=== PATIENT | female | born 1935 | race Caucasian/White ===

== ENCOUNTER → 2017-11-22 | Outpatient (CLI) | payer OTHER ==
[~2017-11-22] MED LIST: ACET325 PO; ASPI81CH PO; Aspirin EC325 MG PO; Aspirin EC81 MG PO; CLOP75 PO; HYDACE5 PO; LITH300C PO; LITH300CA; LITH300ER PO; META800 PO; Macrobid 100 M100 MG PO
== END | disposition home or self-care (01) ==
LOC: LAB SHORT 14:57 → LAB EV 14:57
DX: R30.0 Dysuria (principal)
CPT/HCPCS: 87086

== ENCOUNTER → 2018-02-04 | Outpatient (CLI) | payer OTHER | END | disposition home or self-care (01) | LOC: LAB SHORT 08:05 → LAB EV 08:05 | DX: R35.0 Frequency of micturition (principal) | CPT/HCPCS: 87086 ==

== ENCOUNTER 2018-04-12 12:34 | Observation (INO) | payer OTHER ==
[~2018-04-12] VITALS: Ht 157.5 cm; Wt 68.1 kg
[2018-04-12 13:03] LABS: BASOPHILS ABSOLUTE AUTO 0.08 K/mm3 (0.00-0.23); BASOPHILS PERCENT AUTO 1 % (0-2); EOSINOPHILS ABSOLUTE AUTO 0.46 K/mm3 (0.00-0.68); EOSINOPHILS PERCENT AUTO 6 % (0-6); Hematocrit 36.6 % (33.0-51.0); IMMATURE GRAN ABSOLUTE AUTO 0.01 K/mm3 (0.00-0.10); IMMATURE GRAN PERCENT AUTO 0 % (0-1); LYMPHOCYTES ABSOLUTE AUTO 1.83 K/mm3 (0.84-5.20); LYMPHOCYTES PERCENT AUTO 24 % (21-46); MONOCYTES ABSOLUTE AUTO 0.53 K/mm3 (0.16-1.47); MONOCYTES PERCENT AUTO 7 % (4-13); Mean Corpuscular HGB 25.7 pg (26.0-34.0); Mean Corpuscular HGB Conc 30.1 g/dL (31.5-36.5); Mean Corpuscular Volume 86 fL (80-100); Mean Platelet Volume 10.5 fL (9.1-12.4); NEUTROPHILS ABSOLUTE AUTO 4.68 K/mm3 (1.96-9.15); NEUTROPHILS PERCENT AUTO 62 % (41-73); Platelet Count 254 K/mm3 (150-400); RDW Coefficient Variation 14.7 % (11.7-14.2); RDW Standard Deviation 45.3 fL (35.1-46.3); Red Blood Cell Count 4.28 M/mm3 (3.80-5.20); White Blood Cell Count 7.59 K/mm3 (4.00-11.30)
[2018-04-12 13:35] LABS: Alanine Aminotransfer (ALT/SGP 20 U/L (12-78); Albumin, Blood 3.6 g/dL (3.4-5.0); Albumin/Globulin Ratio 1.2 (0.8-1.8); Alk Phos 77 U/L (50-136); Anion Gap 7 mmol/L (6-16); Aspartate Aminotrans (AST/SGOT 18 U/L (12-37); Bilirubin, Total 0.8 mg/dL (0.1-1.0); Blood Urea Nitrogen 15 mg/dL (8-24); Bun/Creatinine Ratio 17.2 (12.0-20.0); CO2, Blood 23 mmol/L (21-32); Calcium, Blood 10.1 mg/dL (8.5-10.1); Chloride, Blood 113 mmol/L (98-108); Creatinine, Blood 0.87 mg/dL (0.40-1.00); Ethanol (Alcohol), Blood, Med <3 mg/dL; Globulin, Blood 3.1 g/dL (2.2-4.0); Glomerular Filtration Rate >60 (60-); Glucose, Blood 87 mg/dL (70-99); Potassium, Blood 4.2 mmol/L (3.5-5.5); Sodium, Blood 143 mmol/L (136-145); Total Protein, Blood 6.7 g/dL (6.4-8.2)
[2018-04-12 13:39] LABS: International Normalized Ratio 1.06; Prothrombin Time Results 10.9 Sec (9.7-11.5)
[2018-04-12] MEDS ORDERED: ASPI81CH PO (13:50)
[2018-04-12] MEDS ORDERED: ASCO500 PO (13:51)
[2018-04-12 19:52] LABS: Lithium 0.89 mmol/L (0.60-1.20)
[2018-04-12 21:19] LABS: Bilirubin, Urine Neg (Neg); Blood, Urine Neg (Neg); Glucose Qualitative, Urine Neg (Neg); Ketones, Urine 2+ (Neg); Leukocyte Esterase, Urine Neg (Neg); Nitrite, Urine Neg (Neg); Protein, Urine Neg (Neg); Urobilinogen, Urine NORM (Normal)
[2018-04-12 21:27] LABS: Appearance, Urine Clear (Clear); Color, Urine Yellow (P-Yellow)
[2018-04-13 05:19] LABS: BASOPHILS ABSOLUTE AUTO 0.07 K/mm3 (0.00-0.23); BASOPHILS PERCENT AUTO 1 % (0-2); EOSINOPHILS ABSOLUTE AUTO 0.57 K/mm3 (0.00-0.68); EOSINOPHILS PERCENT AUTO 7 % (0-6); Hematocrit 37.7 % (33.0-51.0); Hemoglobin 11.3 g/dL (11.5-16.0); IMMATURE GRAN ABSOLUTE AUTO 0.02 K/mm3 (0.00-0.10); IMMATURE GRAN PERCENT AUTO 0 % (0-1); LYMPHOCYTES ABSOLUTE AUTO 2.08 K/mm3 (0.84-5.20); LYMPHOCYTES PERCENT AUTO 24 % (21-46); MONOCYTES ABSOLUTE AUTO 0.64 K/mm3 (0.16-1.47); MONOCYTES PERCENT AUTO 7 % (4-13); Mean Corpuscular HGB 26.1 pg (26.0-34.0); Mean Corpuscular Volume 87 fL (80-100); Mean Platelet Volume 10.3 fL (9.1-12.4); NEUTROPHILS ABSOLUTE AUTO 5.44 K/mm3 (1.96-9.15); NEUTROPHILS PERCENT AUTO 62 % (41-73); Platelet Count 247 K/mm3 (150-400); RDW Coefficient Variation 14.6 % (11.7-14.2); RDW Standard Deviation 47.5 fL (35.1-46.3); Red Blood Cell Count 4.33 M/mm3 (3.80-5.20); White Blood Cell Count 8.82 K/mm3 (4.00-11.30)
[2018-04-13 05:48] LABS: Anion Gap 8 mmol/L (6-16); Blood Urea Nitrogen 14 mg/dL (8-24); Bun/Creatinine Ratio 17.1 (12.0-20.0); CHOL/HDL RATIO 2.9; CO2, Blood 24 mmol/L (21-32); Calcium, Blood 9.8 mg/dL (8.5-10.1); Chloride, Blood 112 mmol/L (98-108); Cholesterol 162 mg/dL (50-200); Creatinine, Blood 0.82 mg/dL (0.40-1.00); Glomerular Filtration Rate >60 (60-); Glucose, Blood 102 mg/dL (70-99); HDL Cholesterol 56 mg/dL (>39); LDL/HDL RATIO 1.3; Low Density Lipoprotein Chol 73 mg/dL (0-110); Potassium, Blood 3.8 mmol/L (3.5-5.5); Sodium, Blood 144 mmol/L (136-145); Triglycerides 164 mg/dL (30-160); Very Low Density Lipoprot Chol 32 mg/dL (6-32)
[2018-04-14] MEDS ORDERED: Lithium Carbon450 MG PO (10:19)
[2018-04-14] MEDS ORDERED: Norvasc2.5 MG PO (10:20)
[2018-04-14] MEDS ORDERED: CLOP75 PO (10:20)
[2018-04-14] MEDS ORDERED: DOCU100 PO (10:21)
== END 2018-04-14 10:47 | disposition home or self-care (01) ==
LOC: ER 12:34 → MEDS 12:35 → ENPENDDIS 04-14 09:20 → MEDS 04-14 10:47
PROVIDERS: Internal Medicine; Physician Assistant
DX: G45.9 Transient cerebral ischemic attack, unspecified (principal); R42 Dizziness and giddiness; N39.0 Urinary tract infection, site not specified; R07.9 Chest pain, unspecified; F31.9 Bipolar disorder, unspecified; I48.92 Unspecified atrial flutter; Z86.73 Personal history of transient ischemic attack (TIA), and cerebral infarction without residual deficits; Z79.899 Other long term (current) drug therapy
CPT/HCPCS: 36415; 70450; 71046; 73522; 80048; 80053; 80061; 80178; 81000; 81003; 84484; 85025; 85610; 90686; 93005; 93010; 93306; 93880; 99285-25; G0480; J1650; J7030

== ENCOUNTER → 2018-06-26 | Outpatient (CLI) | payer OTHER ==
[~2018-06-26] MED LIST changes: +ASCO500 PO; +DOCU100 PO; +Lithium Carbon450 MG PO; +Norvasc2.5 MG PO
[2018-06-26 13:09] LABS: Source, Urine Clean Catch
[2018-06-26 14:10] LABS: Bilirubin, Urine Neg (Neg); Blood, Urine 1+ (Neg); Glucose Qualitative, Urine Neg (Neg); Ketones, Urine Neg (Neg); Leukocyte Esterase, Urine 2+ (Neg); Nitrite, Urine Neg (Neg); Protein, Urine Neg (Neg); Urobilinogen, Urine NORM (Normal)
[2018-06-26 14:20] LABS: Appearance, Urine Hazy (Clear); Color, Urine Yellow (P-Yellow)
[2018-06-26 14:22] LABS: Bacteria Many /hpf; Squamous Epithelial Cells Mod /hpf (Few)
== END ==
LOC: LAB SHORT 13:08 → LAB 13:08
PROVIDERS: Internal Medicine
DX: N39.0 Urinary tract infection, site not specified (principal)
CPT/HCPCS: 81001; 87086

== ENCOUNTER → 2018-07-17 | Outpatient (CLI) | payer OTHER ==
[2018-07-17 13:08] LABS: Source, Urine Clean Catch
[2018-07-17 13:49] LABS: Bilirubin, Urine Neg (Neg); Blood, Urine 2+ (Neg); Glucose Qualitative, Urine Neg (Neg); Ketones, Urine Neg (Neg); Leukocyte Esterase, Urine 1+ (Neg); Nitrite, Urine Neg (Neg); Protein, Urine 1+ (Neg); Urobilinogen, Urine NORM (Normal)
[2018-07-17 14:04] LABS: Color, Urine Yellow (P-Yellow)
[2018-07-17 14:05] LABS: Appearance, Urine Hazy (Clear)
[2018-07-17 14:09] LABS: Bacteria Mod /hpf; Renal Epithelial Mod /hpf (0-Rare); Squamous Epithelial Cells Few /hpf (Few)
== END | disposition home or self-care (01) ==
LOC: LAB SHORT 13:06 → LAB 13:06
PROVIDERS: Internal Medicine
DX: N39.0 Urinary tract infection, site not specified (principal)
CPT/HCPCS: 81001; 87086

== ENCOUNTER 2018-08-21 12:51 | Emergency (ER) | payer OTHER ==
[~2018-08-21] VITALS: Ht 157.5 cm; Wt 63.5 kg
[2018-08-21 14:30] LABS: BASOPHILS ABSOLUTE AUTO 0.05 K/mm3 (0.00-0.23); BASOPHILS PERCENT AUTO 1 % (0-2); EOSINOPHILS PERCENT AUTO 3 % (0-6); Hematocrit 34.9 % (33.0-51.0); Hemoglobin 10.6 g/dL (11.5-16.0); IMMATURE GRAN ABSOLUTE AUTO 0.03 K/mm3 (0.00-0.10); IMMATURE GRAN PERCENT AUTO 0 % (0-1); LYMPHOCYTES ABSOLUTE AUTO 1.23 K/mm3 (0.84-5.20); LYMPHOCYTES PERCENT AUTO 16 % (21-46); MONOCYTES ABSOLUTE AUTO 0.37 K/mm3 (0.16-1.47); MONOCYTES PERCENT AUTO 5 % (4-13); Mean Corpuscular HGB 26.3 pg (26.0-34.0); Mean Corpuscular HGB Conc 30.4 g/dL (31.5-36.5); Mean Corpuscular Volume 87 fL (80-100); Mean Platelet Volume 10.1 fL (9.1-12.4); NEUTROPHILS ABSOLUTE AUTO 5.72 K/mm3 (1.96-9.15); NEUTROPHILS PERCENT AUTO 75 % (41-73); Platelet Count 281 K/mm3 (150-400); RDW Coefficient Variation 13.9 % (11.7-14.2); RDW Standard Deviation 43.8 fL (35.1-46.3); Red Blood Cell Count 4.03 M/mm3 (3.80-5.20)
[2018-08-21 14:51] LABS: Alanine Aminotransfer (ALT/SGP 11 U/L (12-78); Albumin, Blood 3.9 g/dL (3.4-5.0); Albumin/Globulin Ratio 1.3 (0.8-1.8); Alk Phos 93 U/L (50-136); Anion Gap 7 mmol/L (6-16); Aspartate Aminotrans (AST/SGOT 8 U/L (12-37); Bilirubin, Total 0.5 mg/dL (0.1-1.0); Blood Urea Nitrogen 14 mg/dL (8-24); Bun/Creatinine Ratio 13.9 (12.0-20.0); CO2, Blood 24 mmol/L (21-32); Calcium, Blood 9.9 mg/dL (8.5-10.1); Chloride, Blood 114 mmol/L (98-108); Creatinine, Blood 1.01 mg/dL (0.40-1.00); Globulin, Blood 3.1 g/dL (2.2-4.0); Glomerular Filtration Rate 55 (60-); Glucose, Blood 104 mg/dL (70-99); Potassium, Blood 3.9 mmol/L (3.5-5.5); Sodium, Blood 145 mmol/L (136-145); Troponin I <0.015 ng/mL (0.000-0.040)
[2018-08-21 15:24] LABS: Source, Urine Clean Catch
[2018-08-21 15:49] LABS: Appearance, Urine Clear (Clear); Bilirubin, Urine Neg (Neg); Blood, Urine 5+ (Neg); Color, Urine Yellow (P-Yellow); Glucose Qualitative, Urine Neg (Neg); Ketones, Urine Neg (Neg); Leukocyte Esterase, Urine Neg (Neg); Nitrite, Urine Neg (Neg); Protein, Urine Neg (Neg); Urobilinogen, Urine NORM (Normal)
[2018-08-21 16:24] LABS: White Blood Cells, Urine 0-2 /hpf (0-5)
[2018-08-21 16:25] LABS: Bacteria Few /hpf; Squamous Epithelial Cells Few /hpf (Few)
== END 2018-08-21 15:54 | disposition home or self-care (01) ==
LOC: ER 12:51
PROVIDERS: Physician Assistant
DX: S70.11XA Contusion of right thigh, initial encounter (principal); S30.1XXA Contusion of abdominal wall, initial encounter; M54.9 Dorsalgia, unspecified; M25.552 Pain in left hip; M25.551 Pain in right hip; F31.9 Bipolar disorder, unspecified; Z88.5 Allergy status to narcotic agent; Z79.82 Long term (current) use of aspirin; Z79.899 Other long term (current) drug therapy; W18.30XA Fall on same level, unspecified, initial encounter
CPT/HCPCS: 36415; 72070; 72100; 73522; 80053; 81001; 84484; 85025; 93005; 93010; 99284-25

== ENCOUNTER 2018-11-14 19:30 | Observation (INO) | payer OTHER ==
[~2018-11-14] VITALS: Ht 160 cm; Wt 67.0 kg
[~2018-11-14 19:30] MED LIST changes: -Lithium Carbon450 MG PO
[2018-11-14 22:54] LABS: BASOPHILS ABSOLUTE AUTO 0.04 K/mm3 (0.00-0.23); BASOPHILS PERCENT AUTO 1 % (0-2); EOSINOPHILS ABSOLUTE AUTO 0.12 K/mm3 (0.00-0.68); EOSINOPHILS PERCENT AUTO 2 % (0-6); Hematocrit 37.4 % (33.0-51.0); Hemoglobin 11.4 g/dL (11.5-16.0); IMMATURE GRAN ABSOLUTE AUTO 0.02 K/mm3 (0.00-0.10); IMMATURE GRAN PERCENT AUTO 0 % (0-1); LYMPHOCYTES ABSOLUTE AUTO 1.45 K/mm3 (0.84-5.20); LYMPHOCYTES PERCENT AUTO 20 % (21-46); MONOCYTES ABSOLUTE AUTO 0.52 K/mm3 (0.16-1.47); MONOCYTES PERCENT AUTO 7 % (4-13); Mean Corpuscular HGB 26.4 pg (26.0-34.0); Mean Corpuscular HGB Conc 30.5 g/dL (31.5-36.5); Mean Corpuscular Volume 87 fL (80-100); NEUTROPHILS ABSOLUTE AUTO 5.12 K/mm3 (1.96-9.15); NEUTROPHILS PERCENT AUTO 70 % (41-73); Platelet Count 237 K/mm3 (150-400); RDW Coefficient Variation 14.5 % (11.7-14.2); RDW Standard Deviation 46.5 fL (35.1-46.3); Red Blood Cell Count 4.32 M/mm3 (3.80-5.20); White Blood Cell Count 7.27 K/mm3 (4.00-11.30)
[2018-11-14 23:12] LABS: Alanine Aminotransfer (ALT/SGP 16 U/L (12-78); Albumin/Globulin Ratio 1.1 (0.8-1.8); Alk Phos 94 U/L (50-136); Anion Gap 8 mmol/L (6-16); Aspartate Aminotrans (AST/SGOT 15 U/L (12-37); Bilirubin, Total 0.6 mg/dL (0.1-1.0); Blood Urea Nitrogen 15 mg/dL (8-24); Bun/Creatinine Ratio 20.4 (12.0-20.0); CO2, Blood 24 mmol/L (21-32); Calcium, Blood 9.9 mg/dL (8.5-10.1); Chloride, Blood 111 mmol/L (98-108); Creatinine, Blood 0.74 mg/dL (0.40-1.00); Globulin, Blood 3.5 g/dL (2.2-4.0); Glomerular Filtration Rate >60 (60-); Glucose, Blood 91 mg/dL (70-99); Potassium, Blood 4.2 mmol/L (3.5-5.5); Sodium, Blood 143 mmol/L (136-145); Total Protein, Blood 7.5 g/dL (6.4-8.2)
[2018-11-14 23:14] LABS: Lithium <0.20 mmol/L (0.60-1.20)
[2018-11-14 23:29] LABS: Source, Urine Clean Catch
[2018-11-14 23:31] LABS: Appearance, Urine Hazy (Clear); Bilirubin, Urine Neg (Neg); Blood, Urine Neg (Neg); Color, Urine Pale Yellow (P-Yellow); Glucose Qualitative, Urine Neg (Neg); Ketones, Urine 2+ (Neg); Leukocyte Esterase, Urine 1+ (Neg); Nitrite, Urine Pos (Neg); Protein, Urine Neg (Neg); Specific Gravity, Urine 1.015 (1.003-1.022); Urobilinogen, Urine NORM (Normal); pH, Urine 6.5 (5.0-8.0)
[2018-11-14 23:41] LABS: Bacteria Many /hpf; Red Blood Cells, Urine Not Seen /hpf (0-2); Squamous Epithelial Cells Not Seen /hpf (Few)
--- NOTE | 2018-11-15 02:29 | NUR ---
0120 83 Y/O FEMALE ADMITTED TO 348 PER STRETCHER FROM ER. PT ABLE TO FOLLOW VERY SIMPLE VERBAL COMMANDS ONLY AND REPEATS SELF FREQUENTLY DURING ASSESSMENT. PTS SKIN INTACT WITH NO PRESSURE ULCERS NOTED TO COCCYX. PT ATE YOGURT X 1 AND WAS GIVEN GLASS OF WATER AND WAS ABLE TO SWALLOW FLUIDS WITHOUT ISSUE. PTS BED ALARM APPLIED.
--- NOTE | 2018-11-15 04:47 | NUR ---
72 Y/O FEMALE RESTED COMFORTABLY IN BED WITH ASSIST X1 REQUIRED TO BSC (TRANSFER AND PIVOT ASSIST VIA WALKER). PT HAVING EPISODES MANIC THIS MORNING WITH PT VOICING SHE NOT TAKEN HER LITHIUM MEDS IV OVER TWO WEEKS. PT SLIGHTLY PARANOID AT TIMES. PTS BED ALARM APPLIED, BED LOW POSITION, CALL LIGHT AT SIDE.
--- NOTE | 2018-11-15 11:39 | NUR ---
Upon receiving a referral to visit the patient, I sat down in patient's room. Patient is very talkative and all over the place in terms of topic and train of thought. 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 I listened empathically, explored her Baptism belief system, provided pastoral counselor dormitory, companionship and prayer. Patient responded well in the moment and showed evidence of enjoying the attention and care. I will continue to remain available.
--- NOTE | 2018-11-15 18:16 | NUR ---
SHE WAS AGITATED ONCE TODAY WALKING OUT INTO THE [place] ANGRY WITH "THE DOCTOR" AND WANTING TO LEAVE. I WAS ABLE TO CALM HER AND SHE WAS SATISFIED. SHE HAS EATEN VERY LITTLE TODAY. SHE SAYS SHE IS TOO UPSET TO EAT, EVEN THOUGH SHE HAS BEEN QUIET AND COOPERATIVE. HER THOUGHTS ARE SCATTERED. SHE IS DELUSIONAL.
--- NOTE | 2018-11-16 04:27 | NUR ---
SUMMARY: 83 Y/O FEMALE RESTED COMFORTABLY ALL EVENING AFTER TAKING ALL EVENING MEDS WITHOUT ISSUE. PTS STILL HAS DISORGANIZED THOUGHTS AT TIMES AND REQUIRED REORIENTATION BY STAFF, ABLE TO FOLLOW SIMPLE VERBAL COMMANDS. PT DENIES PAIN OR NAUSEA, BED IN LOW POSITION, CALL LIGHT AT SIDE.
--- NOTE | 2018-11-16 18:17 | NUR ---
NO ACUTE CHANGES. PATIENT REMAINS CONFUSED BUT IS PLEASANT. PATIENTS FRIENDS CAME IN AND EXPRESSED CONCERNS OVERS PATIENTS MENTAL CONDITION STATING SHE IS UNABLE TO SAFELY CARE FOR HERSELF. THEY FEAR SHE WILL HURT HERSELF OR SOMEONE ELSE INADVERTENTLY. SHE IS DRIVING AND ACCORDING TO THE FRIENDS SHE IS UNSAFE. DUE TO HER MENTAL DECLINE THEY ARE WORRIED ABOUT HER RETURING HOME TO LIVE ON HER OWN STATING SHE IS UNSAFE. TYPING TEACHER NOTIFIED.
--- NOTE | 2018-11-16 23:22 | NUR ---
11/16/182129 RN ATTEMPTED TO FLUSH AND PT C/O PAINFUL. RN DC'D IV BUT PT REFUSED RN TO START NEW ONE. RN LATER WAS ABLE TO CONVINCE HER TO LET ANOTHER RN TRY A NEW SITE.
--- NOTE | 2018-11-17 06:46 | NUR ---
11/17/18 0610 AWAKE AND HELPED TO BATHROOM BUT WAS INCONTINENT EN ROUTE. PARTIAL BATH GIVEN. VITALS STABLE. DENIES ANY S/S OR DISCOMFOT AT THIS TIME.
--- NOTE | 2018-11-17 16:13 | NUR ---
FAMILY INFORMATION FOR DISCHARGE PLANNING. GRANDSHELBY BOLTON [phone]. ACCORDING TO PATIENTS CLOSEST FRIENDS CHE HELPS HIS GRANDMOTHER WITH FINANCES. PATIENT HAS A DAUGHTER WHO, ACCORDING TO FRIENDS , ISNT REALLY INVOLVED. THE FRIEND ISNT SURE THESE NUMBER STILL WORK. [phone] HOME [phone] CELL. FRIEND IS VERY CONCERNED WITH PATIENT BEING DISCHARGED TO HOME SHE IS STILL VERY CONFUSED AND FRIENDS BELIEVE THAT DUE TO PATIENTS MENTATION SHE WILL NOT BE ABLE TO SAFELY CARE FOR HERSELF.
--- NOTE | 2018-11-17 16:31 | NUR ---
NO ACUTE CHANGES TO PATIENT. SHE IS INDEPENDENT IN THE ROOM. PATIENT CONTINUES TO BE CONFUSED . SHE IS PLEASANT AND COOPERATIVE WITH ALL CARES. FRIENDS ARE INVOLVED MUCH POSSIBLE BUT ARE CONCERNED WITH PATIENTS POST DISCHARGE.
--- NOTE | 2018-11-17 22:43 | NUR ---
11/17/18 0117 PT REFUSED IV ANTIBIOTIC AND IV FLUSH. PT STATES SHE NEEDS TO TALK WITH "MY DOCTOR FIRST." EXPLAINED IMPORTANCE OF MED AND FLUSHING IV FOR PATENCY. ABSOLUTELY REFUSED AND SAID, "YOU ARE MAKING ME VERY ANGRY!" INFORMED [employer] OF REFUSAL.
--- NOTE | 2018-11-18 03:22 | NUR ---
014 PT C/O ABD. DISCOMFORT AND ASSISTED TO BR. VOIDED ONLY. C/O CONSTIPATION. OFFERED DULCOLAX SUPP AND AGREED TO TAKE IT. WHEN RN CAME WITH SUPP, SHE DECLINED AFTER RN OPENED IT.
--- NOTE | 2018-11-18 06:48 | NUR ---
11/18/18 0600 PT SLEPT ON AND OFF. MORE IRRITABLE AND ANXIOUS THIS AM. C/O CONSTIPATION BUT DECLINED SUPPOSITORY. PT WOULD NOT TAKE IV ANTIBIOTICS LAST NIGHT AND REFUSED RN TO FLUSH IV SITE EVEN WHEN EXPLAINED IMPORTANCE.
--- NOTE | 2018-11-18 18:46 | NUR ---
SHIFT SUMMARY PT A&Ox2, CALM AND COOPERATIVE WITH THE MAJORITY OF CARE. PT REFUSING TO ALLOW NURSING STAFF TO FLUSH IV AND REFUSING TO GO TO HEAD CT THIS EVENING, NOTIIFED DR LORENZ, NEW ORDERS TO ATTEMPTS HEAD CT IN THE AM AND DR LORENZ TO INPUT ORDERS FOR PO ANTIBIOTICS. PT ANXIOUS AT TIMES, STATES SHE WANTS TO GO HOME, THAT SHE CANNOT AFFORD TO STAY IN THE HOSPITAL MUCH LONGER, EDUCATED PT THAT WE ARE WORKING OF A SAFE DISCHARGE PLAN. PT IND IN ROOM. PT REPORTING CONSTIPATION, REQUESTING SUPPOSITORY, ADMINISTERED PER EMAR. DENIES SOB AND N/V DURING SHIFT. REPORTS DECREASED APPETITE. PT TAKING PO LITHIUM. ALYSA AT BEDSIDE FOR PYSCH EVEAL THIS AFTERNOON. VSS. NO OTHER ACUTE CHANGES NOTED DURING SHIFT. REPORT GIVEN TO ONCOMING RN.
--- NOTE | 2018-11-18 19:42 | NUR ---
CONSTIPATION PT HAS NOT HAD A BM X 5 DAYS. C/O PAIN TO RECTUM AND BEING "BACKED UP" AND NEEDS IT TO BE "DUG OUT". DAYSHIFT RN ADMINISTERED SUPPOSITORY c NO RELIEF. PT CONTINUES TO CRY OUT IN PAIN. ADMINISTERING ENEMA AT THIS TIME.
--- NOTE | 2018-11-18 20:01 | NUR ---
PT HAS EXTRA LAARGE BM FTER ADMINISTRATION OF ENEMA. BM IS HARD AND BROWN. PT REPORTS RECTAL PAIN IS GONE.
--- NOTE | 2018-11-18 21:33 | NUR ---
IV ASSESSMENT PT WILL NOT ALLOW RN TO FLUSH IV FOR ASSESSMENT. IV SITE APPEARS WNL
--- NOTE | 2018-11-19 01:07 | NUR ---
LATE ENTRY FOR 11/18 @ 4840 PT WAKES UP AND GOES OUT TO HALLWAY, YELLING "IM GOING HOME, GET ME OUT OF HERE, DO NOT TOUCH ME, ETC". PT SEES THIS RN AND STATES, "YOU SAVED MY LIFE I WAS SO CONSTIPATED, I ONLY TRUST YOU." DE-ESCALATED PT, BUT PT REFUSES TO GO BACK INTO ROOM IT IS "CURSED". PT AGREED TO SLEEP IN HALLWAY. OBTAINED RECLINER AND BEDDING, AND PT IS NOW ASLEEP IN RECLINER IN HALLWAY. RN OR LASER ENGINEER SITTING WITH PT. WILL CONT TO MONITOR.
--- NOTE | 2018-11-19 04:41 | NUR ---
SHIFT SUMMARY: PT IS QUITE PARANOID TONIGHT. PT EXITS ROOM AND ATTEMPTS TO EXIT HALLWAY BEFORE BEING STOPPED BY THIS RN. PT IS PARANOID OF ROOM AND STATES IT IS CURSED. DIRECTED PT TO A RECLINER IN THE HALLWAY, WHERE SHE SLEPT FOR A FEW HOURS. PT AWOKE AND WANTED TO GO BACK TO RM. PT IS COOPERATIVE FOR THE MOST PART, BUT DOES NOT LIKE BEING TOUCHED. WILL NOT ALLOW IV ASSESSMENT. PT C/O PAIN R/T CONSTIPATION AT START OF SHIFT. ADMINISTERED PRN ENEMA, PT HAD XL BM, AND PAIN WAS RELIEVED. SEE PRIOR NOTE. WILL CONT TO MONITOR AND PROVIDE CARE UNTIL PRESUMED BY ONCOMING RN.
--- NOTE | 2018-11-19 19:35 | NUR ---
SHIFT SUMMARY PT A&OX2. PT ANXIOUS, IRRITABLE AT TIMES. PT PARANOID, STATING PEOPLE WERE WATCHING HER. 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 PT BECAME AGRESSIVE TOWARDS STAFF, WARNING US TO STAY AWAY FROM HER AND THROWING ICE TOWARDS STAFF THIS AM, PT REQUEST SECURITY BE CALLED, SECURITY STAFF TO ROOM, DR LORENZ NOTIFIED, AND TO BEDSIDE THIS AM, NEW ORDERS FOR IM HALDOL, PT MEDICATED PER EMAR. THIS AFTERNOON, PT WALKING THROUGH [place], ATTEMPTING TO LEAVE LOCKED UNIT, PT ATTMEPTED TO FOLLOW THIS RN INTO ANOTHER PT ROOM AND WHEN TOLD SHE COULD NOT GO IN THE PT STATED "IF I CANT COME IN, YOU ARE NOT COMING OUT" AND STOOD IN THE DOORWAY FIRMLY GRIPPING A COMB. ANOTHER STAFF MEMEBER WAS ABLE REDIRECTED PT AND DIRECTED HER BACK TO HER ROOM. PT DENIES PAIN, SOB AND N/V DURING SHIFT. PT RECEIVING PO ANTIBIOTICS. PT TAKES MEDICATION WHOLE WITH WATER AND IS RESISTANT TO TAKING THEM. PT EDUCATED ON EACH MEDICATION AND WHAT IT DOSE AND WHY SHE IS TAKING IT. HEAD CT COMPLETED DURING SHIFT. REPORT GIVEN TO ONCOMING RN.
--- NOTE | 2018-11-19 21:17 | NUR ---
REFUSING TO LET THIS RN FLUSH + ASSESS IV SITE. PARANOID OF "WHAT THE FLUSH IS AND WHY THERE IS A NEEDLE". HOWEVER, SITE APPEARS WNL.
--- NOTE | 2018-11-20 04:00 | NUR ---
SHIFT SUMMARY: PT HAS HAD A GOOD NIGHT TONIGHT. PT TOOK PM MEDS W/O PARANOIA, HAS BEEN COMPLIANT WITH ALL CARE AND ALL STAFF. PT FELL ASLEEP AROUND 2200, AND HAS BEEN ASLEEP SINCE THEN. WHEN AWOKE FOR ROUNDING AND BR ASSISTANCE, PT IS KIND AND COOPERATIVE. PT APOLOGIZES SEVERAL TIMES FOR "BEHAVIOR EARLIER". PT SAYS SHE WAS HAVING A "TIA, SEVERAL OF THEM ACTUALLY" AND MAKES HER ACT DIFFERENT. NO OTHER CHANGES TO REPORT. WILL CONT TO MONITOR AND PROVIDE CARE UNTIL PRESUMED BY ONCOMING RN.
--- NOTE | 2018-11-20 05:01 | NUR ---
MANIC PT WAKES UP HYSTERICALLY LAUGHING, COMBATIVE, SPEECH EXTREMELY PRESSURED AND QUICK, UNCOMPREHENSIBLE, NONSENSICAL. ADMINSITERING IM HALDOL AT THIS TIME. 3 STAFF IN TO CONTROL PT.
--- NOTE | 2018-11-20 05:40 | NUR ---
PT THREATENING TO KILL STAFF, PUSHING END TABLE, THROWING CALL LIGHT, ATTEMPTING TO EXIT ROOM AND "KILL THE HOSPITAL". PT IS DANGEROUS AND UNAPPROACHABLE. CALLED SECURITY UP FOR SAFETY. VIVIAN PLACED BY SECURITY PT WOULD NOT ALLOW THIS RN AND WET PROCESS ASSISTANT HEAD MILLER TO TOUCH HER WE ARE "TRYNG TO HURT HER". VIVIAN IN PLACE.
--- NOTE | 2018-11-20 06:36 | NUR ---
UPDATE RADHA ANGLIN UNSUCCESSFUL HOURS LATER, PT IS IN VIVIAN AND CONTINUES TO THREATEN STAFF AND LAUGH OUT HYSTERICALLY. PT IS FRANTIC AND HAVING FLIGHT OF IDEAS AND PARANOIA. SHE TELLS ALL STAFF TO GET OUT OF ROOM UPON ENTERING, BUT THEN REPEATEDLY PRESSES CALL LIGHT AND YELLS FOR SOMEONE TO COME IN.
--- NOTE | 2018-11-20 10:21 | NUR ---
PT LYING IN BED AWAKE. PT VERY UPSET ABOUT LAST NIGHT AND REPORTS PEOPLE WERE HERE WITH GUNS DRAWN TO TAKE TO SENIOR CARE. PT WOULD NOT ALLOW ME TO COME FAR ENOUGH IN THE ROOM TO ASSESS PT BUT AFTER SITTING WITH PT FOR QUITE SOME TIME PT ALLOWED ME TO TAKE VS AND DID EVENTUALLY TAKE MEDICATIONS. PT IS VERY UNTRUSTING OF PEOPLE AND WANTS TO ASSURE THAT SHE CAN TRUST YOU PRIOR TO LETTING YOU DO ANYTHIGN WITH HER. PT DENIES ANY COMPLAINTS AT THIS TIME. 22G TO RFA BUT PT WOULD NOT ALLOW FOR IT TO BE FLUSHED AT THIS TIME.
--- NOTE | 2018-11-20 14:26 | NUR ---
DR LORENZ AND ALYSA LESTER AT BEDSIDE TO SEE PT.
--- NOTE | 2018-11-20 14:38 | NUR ---
PT NOW A 2MD HOLD, YELLOW COPY PLACED IN CHART AND WHITE COPY AND FACE SHEET SENT TO ER CRISIS UNIT FOR [facility].
--- NOTE | 2018-11-20 16:44 | NUR ---
SHIFT SUMMARY- PT VERY PARANOID THIS AM AND WOULD NOT ALLOW FOR ASSESSMENT AND TOOK APROX 30 MIN TO GET PT TO TAKE MEDICATIONS. SHE REPORTED THAT STAFF ATTEMPTED TO KILL HER THE NIGHT BEFORE AND TAKE HER TO SKILLED NURSING. NONSENSICAL SPEECH AND RAMBLES ON. MID MORNING PT CALMED DOWN AND MUCH MORE COOPERATIVE WITH CARE, VIVIAN DC'D AND PT HAS BEEN UP AMBULATING IN ROOM AND EVEN TOOK A SHOWER. PT PLACED ON 2MD HOLD, CAMERA MONITOR ON. PT HAS HAD VISITORS AT TIMES T/O THE DAY. PT IS VERY CONCERNED ABOUT TRUST AND ONCE SHE STATES SHE TRUSTS YOU SHE IS MUCH MORE COOPERATIVE. PSYCH MEDS ADJUSTED BY ALYSA LESTER. PT AWAITING INPATIENT PSYCH AT THIS TIME.
--- NOTE | 2018-11-21 05:16 | NUR ---
SHIFT SUMMARY PT WAS COOPERATIVE AND AGREEABLE. PT DID HAVE PERIODS OF NONSENSICAL SPEECH BUT WAS REDIRECTED. PT HAD NO OUTBURSTS NOTED. PT DID NOT SLEEP MUCH T/O SHIFT. PT CONTINUED TO TALK TO HER SELF FOR LONG PERIODS. PT IS NOW ASLEEP AND BREATHING EASY.
[2018-11-21] MEDS ORDERED: Florastor250 MG PO (12:23)
[2018-11-21] MEDS ORDERED: ACET500 PO (12:23)
[2018-11-21] MEDS ORDERED: MIRALAX17 GM PO (12:23)
[2018-11-21] MEDS ORDERED: RISP.5 PO (12:23)
[2018-11-21] MEDS ORDERED: CEFU500T30 PO (12:23)
[2018-11-21] MEDS ORDERED: SENN187 PO (12:24)
--- NOTE | 2018-11-21 13:48 | NUR ---
REPORT GIVEN TO DAVID BEARD AT [facility]. PT D/C AT 1347 VIA WHEELCHAIR WITH SECURED TRANSPORT.
== END 2018-11-21 13:50 ==
LOC: ER 19:30 → MEDS 19:31 → ER 11-15 01:15 → MEDS 11-15 01:22
PROVIDERS: Emergency Medicine; Nurse Practitioner Psychiatric/Mental Health; ADMIT Internal Medicine
DX: F31.0 Bipolar disorder, current episode hypomanic (principal); N39.0 Urinary tract infection, site not specified; I10 Essential (primary) hypertension; Z88.5 Allergy status to narcotic agent; Z79.899 Other long term (current) drug therapy; Z79.82 Long term (current) use of aspirin; Z86.73 Personal history of transient ischemic attack (TIA), and cerebral infarction without residual deficits
CPT/HCPCS: 36415; 70450; 80053; 80178; 81001; 85025; 87077; 87086; 87186; 92523; 96365; 97161; 97167; 97530; 97535; 99285-25; G0480; J0696; J1630; J1650; J7050; Q3014

== ENCOUNTER → 2019-01-15 | Outpatient (CLI) | payer OTHER ==
[~2019-01-15] MED LIST changes: +ACET500 PO; +CEFU500T30 PO; +Florastor250 MG PO; +MIRALAX17 GM PO; +RISP.5 PO; +SENN187 PO
[2019-01-15 12:36] LABS: Source, Urine Clean Catch
[2019-01-15 13:07] LABS: Bilirubin, Urine Neg (Neg); Blood, Urine Neg (Neg); Glucose Qualitative, Urine Neg (Neg); Ketones, Urine 1+ (Neg); Leukocyte Esterase, Urine 1+ (Neg); Nitrite, Urine Neg (Neg); Protein, Urine 2+ (Neg); Urobilinogen, Urine NORM (Normal)
[2019-01-15 13:29] LABS: Appearance, Urine Clear (Clear); Color, Urine Yellow (P-Yellow)
[2019-01-15 13:33] LABS: Bacteria Mod /hpf; Red Blood Cells, Urine Not Seen /hpf (0-2); Squamous Epithelial Cells Mod /hpf (Few)
[2019-01-15 13:34] LABS: Mucus Light ({null, 0-Heavy})
== END | disposition home or self-care (01) ==
LOC: LAB 12:35 → LAB SHORT 12:35
PROVIDERS: Internal Medicine
DX: N39.0 Urinary tract infection, site not specified (principal)
CPT/HCPCS: 81001; 87086

== ENCOUNTER 2019-06-17 17:03 | Emergency (ER) | payer OTHER ==
[~2019-06-17] VITALS: Ht 165.1 cm; Wt 68.0 kg
[2019-06-17 17:51] LABS: Source, Urine Catheter
[2019-06-17 17:55] LABS: BASOPHILS ABSOLUTE AUTO 0.05 K/mm3 (0.00-0.23); BASOPHILS PERCENT AUTO 1 % (0-2); EOSINOPHILS PERCENT AUTO 4 % (0-6); Hematocrit 36.8 % (33.0-51.0); Hemoglobin 10.9 g/dL (11.5-16.0); IMMATURE GRAN PERCENT AUTO 1 % (0-1); LYMPHOCYTES ABSOLUTE AUTO 1.89 K/mm3 (0.84-5.20); LYMPHOCYTES PERCENT AUTO 25 % (21-46); MONOCYTES ABSOLUTE AUTO 0.41 K/mm3 (0.16-1.47); MONOCYTES PERCENT AUTO 6 % (4-13); Mean Corpuscular HGB 27.9 pg (26.0-34.0); Mean Corpuscular HGB Conc 29.6 g/dL (31.5-36.5); Mean Corpuscular Volume 94 fL (80-100); Mean Platelet Volume 9.9 fL (9.1-12.4); NEUTROPHILS ABSOLUTE AUTO 4.72 K/mm3 (1.96-9.15); NEUTROPHILS PERCENT AUTO 63 % (41-73); Platelet Count 242 K/mm3 (150-400); RDW Coefficient Variation 13.4 % (11.7-14.2); RDW Standard Deviation 46.4 fL (35.1-46.3); Red Blood Cell Count 3.91 M/mm3 (3.80-5.20); White Blood Cell Count 7.47 K/mm3 (4.00-11.30)
[2019-06-17 18:06] LABS: Alanine Aminotransfer (ALT/SGP 15 U/L (12-78); Albumin, Blood 3.6 g/dL (3.4-5.0); Albumin/Globulin Ratio 1.1 (0.8-1.8); Alk Phos 98 U/L (50-136); Anion Gap 5 mmol/L (6-16); Aspartate Aminotrans (AST/SGOT 8 U/L (12-37); Bilirubin, Total 0.3 mg/dL (0.1-1.0); Blood Urea Nitrogen 16 mg/dL (8-24); CO2, Blood 21 mmol/L (21-32); Calcium, Blood 9.5 mg/dL (8.5-10.1); Chloride, Blood 114 mmol/L (98-108); Creatinine, Blood 0.76 mg/dL (0.40-1.00); Globulin, Blood 3.3 g/dL (2.2-4.0); Glomerular Filtration Rate >60 (60-); Glucose, Blood 129 mg/dL (70-99); Potassium, Blood 3.7 mmol/L (3.5-5.5); Sodium, Blood 140 mmol/L (136-145); Total Protein, Blood 6.9 g/dL (6.4-8.2); Troponin I <0.015 ng/mL (0.000-0.040)
[2019-06-17 18:21] LABS: Bilirubin, Urine Neg (Neg); Blood, Urine 1+ (Neg); Glucose Qualitative, Urine Neg (Neg); Ketones, Urine 1+ (Neg); Leukocyte Esterase, Urine Neg (Neg); Nitrite, Urine Neg (Neg); Protein, Urine 2+ (Neg); Specific Gravity, Urine 1.025 (1.003-1.022); Urobilinogen, Urine NORM (Normal)
[2019-06-17 18:34] LABS: Appearance, Urine Clear (Clear); Color, Urine Yellow (P-Yellow)
[2019-06-17 18:40] LABS: Bacteria Mod /hpf; Mucus Mod (0-Heavy); Red Blood Cells, Urine 0-2 /hpf (0-2); Squamous Epithelial Cells Rare /hpf (Few)
[2019-06-17 18:46] LABS: Lithium 0.69 mmol/L (0.60-1.20)
[2019-06-17] MEDS ORDERED: ONDA4ODT MM (19:10)
== END 2019-06-17 19:20 | disposition home or self-care (01) ==
LOC: ER 17:03
PROVIDERS: Emergency Medicine
DX: R55 Syncope and collapse (principal); R11.2 Nausea with vomiting, unspecified; E86.0 Dehydration; Z86.73 Personal history of transient ischemic attack (TIA), and cerebral infarction without residual deficits; F31.9 Bipolar disorder, unspecified; I10 Essential (primary) hypertension; Z79.899 Other long term (current) drug therapy; Z79.82 Long term (current) use of aspirin
CPT/HCPCS: 36415; 71045; 80053; 80178; 81001; 84484; 85025; 87086; 93005; 93010; 96361; 96374; 99284-25; J2405; J7030; P9612

== ENCOUNTER → 2019-10-29 | Outpatient (CLI) | payer OTHER ==
[~2019-10-29] MED LIST changes: +ONDA4ODT MM
== END | disposition home or self-care (01) ==
LOC: LAB 19:32 → LAB SHORT 19:32
DX: R30.0 Dysuria (principal)
CPT/HCPCS: 87077; 87086; 87186

== ENCOUNTER 2020-06-28 12:24 | Emergency (ER) | payer OTHER ==
[~2020-06-28] VITALS: Ht 152.4 cm; Wt 63.5 kg
[~2020-06-28 12:24] MED LIST changes: +Lithium Carbon450 MG PO; +QUETIAPINE FUMA50 MG PO
[2020-06-28] MEDS ORDERED: MAGCIT300 PO (14:50)
== END 2020-06-28 14:55 | disposition home or self-care (01) ==
LOC: ER 12:24
DX: K59.00 Constipation, unspecified (principal); F31.9 Bipolar disorder, unspecified; I10 Essential (primary) hypertension; F03.90 Unspecified dementia, unspecified severity, without behavioral disturbance, psychotic disturbance, mood disturbance, and anxiety; Z79.82 Long term (current) use of aspirin; Z79.02 Long term (current) use of antithrombotics/antiplatelets; Z79.899 Other long term (current) drug therapy; Z88.5 Allergy status to narcotic agent; Z86.73 Personal history of transient ischemic attack (TIA), and cerebral infarction without residual deficits
CPT/HCPCS: 74018; 99283-25

== ENCOUNTER 2020-10-11 08:59 | Day surgery (SDC) | payer OTHER ==
[~2020-10-11 08:59] MED LIST changes: +MAGCIT300 PO
[2020-11-29] MEDS ORDERED: Voltaren100 GM TOP (16:32)
[2020-11-29] MEDS ORDERED: VITAMIN D310 MC4 PO (16:32)
== END 2020-10-11 23:41 | disposition home or self-care (01) ==
LOC: MOI US 08:59 → MOI MAM 09:30 → MOI US 23:41
DX: D24.2 Benign neoplasm of left breast (principal); N62 Hypertrophy of breast
CPT/HCPCS: 19083; 77065; 88305; 88341; 88342; A4648

== ENCOUNTER 2020-12-13 17:42 | Inpatient (IN) | payer OTHER, MEDICARE ==
[~2020-12-13] VITALS: Ht 152.4 cm; Wt 70.7 kg
[~2020-12-13 17:42] MED LIST changes: +VITAMIN D310 MC4 PO; +Voltaren100 GM TOP
[2020-12-13 18:38] LABS: International Normalized Ratio 1.16; Prothrombin Time Results 12.4 Sec (9.7-11.5)
[2020-12-13 18:47] LABS: Albumin, Blood 3.7 g/dL (3.4-5.0); Albumin/Globulin Ratio 1.2 (0.8-1.8); Bilirubin, Total 0.8 mg/dL (0.1-1.0); Bun/Creatinine Ratio 13.9 (12.0-20.0); Calcium, Blood 10.7 mg/dL (8.5-10.1); Creatinine, Blood 1.22 mg/dL (0.40-1.00); Globulin, Blood 3.2 g/dL (2.2-4.0); Total Protein, Blood 6.9 g/dL (6.4-8.2)
[2020-12-13 18:56] LABS: Hematocrit 32.7 % (33.0-51.0); Hemoglobin 9.7 g/dL (11.5-16.0); Mean Corpuscular HGB 25.4 pg (26.0-34.0); Mean Corpuscular HGB Conc 29.7 g/dL (31.5-36.5); Mean Corpuscular Volume 86 fL (80-100); Mean Platelet Volume 9.6 fL (9.1-12.4); Platelet Count 199 K/mm3 (150-400); RDW Coefficient Variation 14.7 % (11.7-14.2); RDW Standard Deviation 46.4 fL (35.1-46.3); Red Blood Cell Count 3.82 M/mm3 (3.80-5.20)
[2020-12-13 18:57] LABS: Lithium 0.73 mmol/L (0.60-1.20)
[2020-12-13 19:02] LABS: BASOPHILS ABSOLUTE AUTO 0.01 K/mm3 (0.00-0.23); BASOPHILS PERCENT AUTO 1 % (0-2); EOSINOPHILS ABSOLUTE AUTO 0.01 K/mm3 (0.00-0.68); EOSINOPHILS PERCENT AUTO 1 % (0-6); IMMATURE GRAN ABSOLUTE AUTO 0.06 K/mm3 (0.00-0.10); IMMATURE GRAN PERCENT AUTO 7 % (0-1); LYMPHOCYTES ABSOLUTE AUTO 0.09 K/mm3 (0.84-5.20); LYMPHOCYTES PERCENT AUTO 10 % (21-46); MONOCYTES PERCENT AUTO 0 % (4-13); NEUTROPHILS ABSOLUTE AUTO 0.76 K/mm3 (1.96-9.15); NEUTROPHILS PERCENT AUTO 82 % (41-73)
[2020-12-13 19:04] LABS: White Blood Cell Count 0.93 K/mm3 (4.00-11.30)
[2020-12-13 19:14] LABS: Source, Urine Catheter
[2020-12-13 19:31] LABS: Bilirubin, Urine Neg (Neg); Blood, Urine 2+ (Neg); Glucose Qualitative, Urine Neg (Neg); Ketones, Urine Neg (Neg); Leukocyte Esterase, Urine 1+ (Neg); Nitrite, Urine Neg (Neg); Protein, Urine 3+ (Neg); Urobilinogen, Urine NORM (Normal); pH, Urine 6.5 (5.0-8.0)
[2020-12-13 19:36] LABS: Appearance, Urine Hazy (Clear); Color, Urine Yellow (P-Yellow)
[2020-12-13 19:37] LABS: Bacteria Many /hpf; Red Blood Cells, Urine 0-2 /hpf (0-2); Squamous Epithelial Cells Few /hpf (Few)
[2020-12-13 20:48] LABS: Magnesium, Blood 1.8 mg/dL (1.6-2.4)
[2020-12-13 21:14] LABS: SARS-Cov-2 (COVID-19) PCR, MMC NEGATIVE (NEGATIVE)
--- NOTE | 2020-12-14 04:34 | NUR ---
PCU ADMIT / SHIFT SUMMARY PT BROUGHT TO PCU-09 BY RACHANA FROM ER @ APPROX 2200. PT NONVERBAL UPON ARRIVAL & T/O SHIFT. PT EYES CLOSED, RESTLESS IN BED, MOANING, GRIMACING, & CRYING OUT. PT DOES NOT ANSWER Q's OR RESPOND TO STAFF PROMPTING. PT MEDICATED FOR PAIN PER EMAR X2 THIS SHIFT W/ RELIEF OF RESTLESSNESS, MOANING & GRIMACING. PT VSS. MONITOR SHOWS SR, HR 70's. SPO2 > 92% ON RA. NS GTT INFUSING PER ORDERS. BED ALARM ON. WILL CONTINUE TO MONITOR & PROVIDE CARE UNTIL REPORT OFF TO DAY SHIFT RN.
[2020-12-14 05:14] LABS: Hematocrit 29.6 % (33.0-51.0); Hemoglobin 8.7 g/dL (11.5-16.0); Mean Corpuscular HGB 24.9 pg (26.0-34.0); Mean Corpuscular HGB Conc 29.4 g/dL (31.5-36.5); Mean Corpuscular Volume 85 fL (80-100); NRBC ABSOLUTE 0.02 K/mm3 (0.00-0.02); NRBC Auto 0.1 /100 WBC (0.0-0.2); Platelet Count 63 K/mm3 (150-400); RDW Standard Deviation 48.8 fL (35.1-46.3); Red Blood Cell Count 3.49 M/mm3 (3.80-5.20); White Blood Cell Count 21.71 K/mm3 (4.00-11.30)
[2020-12-14 05:37] LABS: Troponin I 0.25 ng/mL (0.000-0.040)
[2020-12-14 05:39] LABS: BAND PERCENT MAN 23 % (0-8); BASOPHILS PERCENT MAN 0 % (0-2); EOSINOPHILS PERCENT MAN 0 % (0-6); LYMPHOCYTES ABSOLUTE MAN 0.21 K/mm3 (0.84-5.20); LYMPHOCYTES PERCENT MAN 1 % (21-46); METAMYELOCYTE ABSOLUTE MAN 1.08 K/mm3 (0.00-0.00); METAMYELOCYTE PERCENT MAN 5 % (0-0); MONOCYTES ABSOLUTE MAN 0.21 K/mm3 (0.16-1.47); MONOCYTES PERCENT MAN 1 % (4-13); MYELOCYTE ABSOLUTE MAN 0.43 K/mm3 (0.00-0.00); MYELOCYTE PERCENT MAN 2 % (0-0); NEUTROPHILS ABSOLUTE MAN 19.75 K/mm3 (1.96-9.15); SEG NEUTROPHILS PERCENT MAN 68 % (41-73); TOTAL CELLS COUNTED 100
[2020-12-14 05:45] LABS: Albumin, Blood 2.4 g/dL (3.4-5.0); Bilirubin, Total 2.4 mg/dL (0.1-1.0); Bun/Creatinine Ratio 10.3 (12.0-20.0); Creatinine, Blood 2.23 mg/dL (0.40-1.00); Globulin, Blood 2.3 g/dL (2.2-4.0); Potassium, Blood 4.8 mmol/L (3.5-5.5)
[2020-12-14 05:46] LABS: Calcium, Blood 8.7 mg/dL (8.5-10.1); Total Protein, Blood 4.7 g/dL (6.4-8.2)
[2020-12-14 09:31] LABS: Hematocrit 32.4 % (33.0-51.0); Hemoglobin 9.3 g/dL (11.5-16.0); Mean Corpuscular HGB 24.9 pg (26.0-34.0); Mean Corpuscular HGB Conc 28.7 g/dL (31.5-36.5); Mean Corpuscular Volume 87 fL (80-100); Platelet Count 70 K/mm3 (150-400); RDW Coefficient Variation 16.2 % (11.7-14.2); RDW Standard Deviation 51.8 fL (35.1-46.3); Red Blood Cell Count 3.73 M/mm3 (3.80-5.20); White Blood Cell Count 26.52 K/mm3 (4.00-11.30)
[2020-12-14 10:30] LABS: BAND PERCENT MAN 18 % (0-8); BASOPHILS PERCENT MAN 0 % (0-2); EOSINOPHILS PERCENT MAN 0 % (0-6); LYMPHOCYTES ABSOLUTE MAN 0.26 K/mm3 (0.84-5.20); LYMPHOCYTES PERCENT MAN 1 % (21-46); METAMYELOCYTE ABSOLUTE MAN 0.53 K/mm3 (0.00-0.00); METAMYELOCYTE PERCENT MAN 2 % (0-0); MONOCYTES PERCENT MAN 0 % (4-13); NEUTROPHILS ABSOLUTE MAN 25.72 K/mm3 (1.96-9.15); SEG NEUTROPHILS PERCENT MAN 79 % (41-73); TOTAL CELLS COUNTED 100
--- NOTE | 2020-12-14 13:00 | NUR ---
PT NOTED BY THIS RN TO BE MOANING AND VERY RESTLESS IN BED. PT APPEARS TO BE IN PAIN. PT DOES NOT RESPOND TO VERBAL COMMANDS AND DOES NOT ANSWER QUESTIONS. PRN PAIN MEDICATION IS NOT YET DUE. THE PT HAS HAD NO URINE OUTPUT THIS SHIFT AND A BLADDER SCAN REVEALED ONLY 13MLS. BP 73/45, PULSE 97, SP02 96% 2L 02, TEMP 99.2, RESP 24. DR GUAMAN NOTIFIED OF FINDINGS, ORDERS RECIEVED. PRMARY DAVID AQUINO UPDATED ON PT STATUS AND ORDERS.
[2020-12-14 13:08] LABS: Albumin, Blood 2.5 g/dL (3.4-5.0); Bilirubin, Direct 1.1 mg/dL (0.0-0.3); Bilirubin, Indirect 0.5 mg/dL (0.1-0.7); Bilirubin, Total 1.6 mg/dL (0.1-1.0); Globulin, Blood 2.5 g/dL (2.2-4.0)
[2020-12-14 16:43] LABS: Source, Urine Catheter
--- NOTE | 2020-12-14 17:09 | NUR ---
DR. CALVIN HAS BEEN IN CONTACT WITH FAMILY, AT THIS POINT THEY DO NOT WANT TO ESCALATE CARE, JUST KEEP INTERVENTIONS THAT ARE GOING NOW.
--- NOTE | 2020-12-14 17:20 | NUR ---
SUMMARY PT WAS TRANSFERED OVER FROM PCU AT 1315 TO ICU 14. PT WAS ONLY MOANING LOUDLY. WILL NOT ANSWER QUESTIONS. THRASHING IN BED. HYPOTENSIVE WITH NORMAL SALINE BOLUS RUNNING. LEVOPHED QUICKLY ORDERED. IV TO LFA WAS INFILTRATING. DR. CALVIN HAD TO PLACE CENTRAL LINE TO R GROIN. GAVE HALDOL AND FENTANYL BUT PT CONTINUED TO MOAN AND YELL. CENTRAL LINE PLACEMENT SUCCESSFUL AND LEVOPHED WAS STARTED. VASOPRESSIN WAS ADDED NOT LONG AFTER. SODIUM BICARB RUNNING. PT WAS STARTED ON PRECEDEX DUE TO AGITATION. PT WAS THRASHING SO MUCH IN BED HER CENTRAL LINE DRESSING WAS SOAKED WITH BLOOD. TRAVIS WAS PLACED AND CLEAR LIGHT YELLOW URINE RETURNED. UNABLE TO GET BP AT THIS TIME, DR. CALVIN AWARE. FAMILY WAS UPDATED VIA PHONE BY NURSING STAFF AND DR. CALVIN. WILL NOT BE ADDING ANY OTHER TREATMENTS AT THIS TIME PER FAMILY REQUEST. FAMILY LIVES OUT OF TOWN. PT'S FRIEND TONIA WAS IN TO SEE HER AND STATES SHE TAKES PT FOR APPOINTMENTS. PT'S HOUSE OLVERA WAS PUT IN HER PURSE BY TONIA.
[2020-12-14 17:36] LABS: Bilirubin, Urine Neg (Neg); Blood, Urine 5+ (Neg); Glucose Qualitative, Urine Neg (Neg); Ketones, Urine Neg (Neg); Leukocyte Esterase, Urine Neg (Neg); Nitrite, Urine Pos (Neg); Protein, Urine 4+ (Neg); Urobilinogen, Urine NORM (Normal); pH, Urine 6.5 (5.0-8.0)
--- NOTE | 2020-12-14 18:17 | NUR ---
PT SCREAMING OUT AND THRASHING IN BED, APPEARED TO BE IN PAIN. PT MEDICATED PER PRIMARY RN FOR PAIN W FENTANYL.
--- NOTE | 2020-12-14 18:55 | NUR ---
PT'S BRIEFS DRY CONTINUOUSLY; PT BLADDER SCANNED AT 1104; VOLUME 13ML; LACTOBACILLUS HELD DUE TO PT NOT BEING ALERT; CRITICAL HIGH LACTIC ACID OF 6.7 AT 0955; DR. GUAMAN NOTIFIED AT 1144 BY PHONE; PT'S BP'S STEADILY DECREASING; DR. GUAMAN NOTIFIED, BLOOD CULTURES POSITIVE FOR GRAM NEGATIVE BACILLI, PHARMACY AND DR. GUAMAN NOTIFIED; TRANSFER ORDERS PLACED; PT TRANSFERRED TO ICU AT 1326; REPORT GIVEN TO DAVID TUCKER AT BEDSIDE AT 1328
[2020-12-14 19:36] LABS: Appearance, Urine Clear (Clear); Color, Urine Pale Yellow (P-Yellow)
[2020-12-14 19:38] LABS: Amorphous Light (0-Heavy); Bacteria Few /hpf; Mucus Light (0-Heavy); Squamous Epithelial Cells Rare /hpf (Few); Transitional Epithelial Cells Few /hpf (0-Rare); White Blood Cells, Urine 0-2 /hpf (0-5)
--- NOTE | 2020-12-14 19:42 | NUR ---
PATIENT NOT RESPONDING TO STIMULI, RESP INCREASE AND MOANING WITH PAINFUL STIMULI. UNABLE TO OBTAIN A RELIABLE BIOX READING OR NIBP. BP 68/DOPPLER VASOPRESSIN 0.04U/MIN AND LEVOPHED 30 MCG/MIN INFUSING FOR BP, PRECEDEX DECREASED TO 0.7 FROM 1.4 MCG FOR SEDATION.
--- NOTE | 2020-12-14 20:15 | NUR ---
PATIENTS PASTOR PEREIRA IN TO SEE PATIENT AND TO GIVE HER PRAYER. HE VERBALIZED THAT HE WILL SEND A MESSAGE TO ALL OF HER FRIENDS WITH AN UPDATE TO HELP MINIMIZE TELEPHONE CALLS. PATIENTS FRIEND ELDA WHO IS LISTED A CONTACT ON FACE SHEET VERBAIZED THAT PATIENT HAS A PLAN FOR SERVICES AT WITH [facility] [address].
--- NOTE | 2020-12-14 21:00 | NUR ---
PATIENT RESTLESS AND YELLING OUT, CALM AFTER FENTANYL, BUT RESTLESS AGAIN AND PRECEDEX BACK TO 1.4 MCG TO HELP PATIENT RELAX. CONTINUING TO HAVE DIFFICULTY OBTAINING NIBP OR BIOX.
--- NOTE | 2020-12-15 06:23 | NUR ---
SUMMARY PATIENT CONTINUES ON PRECEDEX 1.4 MCG WHEN AWAKE PATIENT YELLING AND MOANING, MOVING ALL EXTREMITIES, NOT OPENING EYES OR FOLLOWING DIRECTIONS. MEDICATED WITH FENTANYL FOR PAIN. LEVOPHED 30 MCG AND VASOPRESSIN 0.04 UNITS FOR HYPOTENSION, CONTINUE TO BE UNABLE TO OBTAIN NIBP, BP RANGING 60-70/ DOPPLER HEART RATE 60-70'S T/O NIGHT. RESP 20'S WITH 4L/NC UNABLE TO OBTAIN AN ACCURATE BIOX DUE TO POOR PERFUSION. GOAL IS TO KEEP PATIENT COMFORTABLE AND KEEP PRESSURES AT CURRENT RATE PER DOCTOR CALVIN.
--- NOTE | 2020-12-15 06:48 | NUR ---
DOCTOR NITIN IN TO SEE PATIENT, STAT LABS ORDERED
[2020-12-15 07:00] LABS: Hemoglobin 8.5 g/dL (11.5-16.0)
[2020-12-15 07:17] LABS: Anion Gap 14 mmol/L (6-16); Blood Urea Nitrogen 41 mg/dL (8-24); Bun/Creatinine Ratio 11.1 (12.0-20.0); CO2, Blood 13 mmol/L (21-32); Calcium, Blood 7.3 mg/dL (8.5-10.1); Chloride, Blood 106 mmol/L (98-108); Creatinine, Blood 3.68 mg/dL (0.40-1.00); Glomerular Filtration Rate 12 (60-); Glucose, Blood 133 mg/dL (70-99); Magnesium, Blood 1.8 mg/dL (1.6-2.4); Phosphorus, Blood 4.9 mg/dL (2.5-4.9); Potassium, Blood 5.8 mmol/L (3.5-5.5); Sodium, Blood 133 mmol/L (136-145)
--- NOTE | 2020-12-15 08:09 | NUR ---
ASSUMED CARE OF PT, REPORT RCV'D FROM DAVID LEIJA. PT UNRESPONSIVE TO VERBAL AND PAINFUL STIMULI ON ASSUMPTION OF CARE. PT APPEARS PALE AND MOTTLED, COOL TO THE TOUCH. AT APPROXIMATELY 0740 PT BECAME KAI AND THEN ASYSTOLE. PT TOD 0745. PT'S GRANDSON NOTIFIED OF PT'S PASSING. [facility] NOTIFIED BY BODY TECHNICIAN/PAINTER.
== END 2020-12-15 07:47 | DRG 871 ==
LOC: ER 17:42 → PCU 21:20 → ICUW 21:20 → PCU 22:21 → ICUW 12-14 13:22
PROVIDERS: Emergency Medicine; Family Medicine; Internal Medicine Critical Care Medicine; Internal Medicine Nephrology; ADMIT Family Medicine
PROC: 02HV33Z Insertion of Infusion Device into Superior Vena Cava, Percutaneous Approach (ICD-10-PCS; principal; 2020-12-15)
PROC: 3E043XZ Introduction of Vasopressor into Central Vein, Percutaneous Approach (ICD-10-PCS; 2020-12-15)
DX: A41.51 Sepsis due to Escherichia coli [E. coli] (principal); R65.21 Severe sepsis with septic shock; G92 Toxic encephalopathy; N17.9 Acute kidney failure, unspecified; E87.1 Hypo-osmolality and hyponatremia; I24.8 Other forms of acute ischemic heart disease; K81.0 Acute cholecystitis; E87.2 Acidosis; N39.0 Urinary tract infection, site not specified; Z66 Do not resuscitate; Z20.822 Contact with and (suspected) exposure to COVID-19; Z51.5 Encounter for palliative care; E87.6 Hypokalemia; R79.89 Other specified abnormal findings of blood chemistry; E86.9 Volume depletion, unspecified; D72.819 Decreased white blood cell count, unspecified; E87.5 Hyperkalemia; D63.1 Anemia in chronic kidney disease; D69.6 Thrombocytopenia, unspecified; E88.09 Other disorders of plasma-protein metabolism, not elsewhere classified; Z78.1 Physical restraint status; I12.9 Hypertensive chronic kidney disease with stage 1 through stage 4 chronic kidney disease, or unspecified chronic kidney disease; N18.9 Chronic kidney disease, unspecified; K21.9 Gastro-esophageal reflux disease without esophagitis; F31.9 Bipolar disorder, unspecified; F03.90 Unspecified dementia, unspecified severity, without behavioral disturbance, psychotic disturbance, mood disturbance, and anxiety; Z86.73 Personal history of transient ischemic attack (TIA), and cerebral infarction without residual deficits; Z90.710 Acquired absence of both cervix and uterus; Z88.5 Allergy status to narcotic agent; Z90.49 Acquired absence of other specified parts of digestive tract; Z79.899 Other long term (current) drug therapy; Z79.02 Long term (current) use of antithrombotics/antiplatelets
CPT/HCPCS: 36415; 36556; 51702; 70450; 71045; 74177; 76705; 80053; 80069; 80076; 80178; 81001; 83605; 83615; 83735; 84484; 85014; 85018; 85025; 85610; 85730; 86850; 86900; 86901; 87040; 87077; 87086; 87186; 93005; 93010; 96361; 96365-59; 96375; 99285-25; A9270; C1751; J0696; J1170; J1630; J1644; J2060; J2250; J2405; J2543; J3010; J3480; J7030; J7050; J7060; J7070; J7120; Q9967; U0004